=== PATIENT | female | born 1990 | race Caucasian/White ===

== ENCOUNTER 2017-09-23 07:45 | Inpatient (IN) | payer OTHER ==
[~2017-09-23] VITALS: Ht 154.9 cm; Wt 84.0 kg
[~2017-09-23 07:45] MED LIST: ALBU90I INH; CODGUAEL PO; Naprosyn500 MG PO; Sprintec1 EACH PO
[2017-09-23] MEDS ORDERED: UNISOM25 MG PO (08:45)
[2017-09-23] MEDS ORDERED: Verotin-Gr Cap1 EACH PO (08:45)
[2017-09-23 08:56] LABS: BASOPHILS ABSOLUTE AUTO 0.03 K/mm3 (0.00-0.23); BASOPHILS PERCENT AUTO 0 % (0-2); EOSINOPHILS ABSOLUTE AUTO 0.14 K/mm3 (0.00-0.68); EOSINOPHILS PERCENT AUTO 1 % (0-6); Hematocrit 34.5 % (33.0-51.0); Hemoglobin 10.9 g/dL (11.5-16.0); IMMATURE GRAN ABSOLUTE AUTO 0.04 K/mm3 (0.00-0.10); IMMATURE GRAN PERCENT AUTO 0 % (0-1); LYMPHOCYTES ABSOLUTE AUTO 1.53 K/mm3 (0.84-5.20); LYMPHOCYTES PERCENT AUTO 13 % (21-46); MONOCYTES ABSOLUTE AUTO 0.92 K/mm3 (0.16-1.47); MONOCYTES PERCENT AUTO 8 % (4-13); Mean Corpuscular HGB 27.3 pg (26.0-34.0); Mean Corpuscular HGB Conc 31.6 g/dL (31.5-36.5); Mean Corpuscular Volume 87 fL (80-100); Mean Platelet Volume 10.2 fL (9.1-12.4); NEUTROPHILS ABSOLUTE AUTO 8.77 K/mm3 (1.96-9.15); NEUTROPHILS PERCENT AUTO 77 % (41-73); Platelet Count 251 K/mm3 (150-400); RDW Coefficient Variation 13.5 % (11.7-14.2); RDW Standard Deviation 42.4 fL (35.1-46.3); Red Blood Cell Count 3.99 M/mm3 (3.80-5.20); White Blood Cell Count 11.43 K/mm3 (4.00-11.30)
[2017-09-23 11:04] LABS: PCO2 Cord - Arterial 52.3 mmHg (40-50); PO2 Cord - Arterial 14.4 mmHg (16-20); pH Cord - Arterial 7.28 (7.28-7.35)
[2017-09-23 11:07] LABS: PCO2 Cord - Venous 40.2 mmHg (40-50); PO2 Cord - Venous 23.5 mmHg (28-32); pH Umbilical Cord - Venous 7.36 (7.26-7.35)
[2017-09-23 11:14] LABS: PCO2 Cord - Arterial 56.3 mmHg (40-50); PO2 Cord - Arterial > 12 mmHg (16-20); pH Cord - Arterial 7.27 (7.28-7.35)
[2017-09-23 11:17] LABS: PO2 Cord - Venous 17.3 mmHg (28-32); pH Umbilical Cord - Venous 7.33 (7.26-7.35)
[2017-09-24 05:48] LABS: Hematocrit 31.3 % (33.0-51.0); Hemoglobin 10.1 g/dL (11.5-16.0); Mean Corpuscular HGB 27.9 pg (26.0-34.0); Mean Corpuscular HGB Conc 32.3 g/dL (31.5-36.5); Mean Corpuscular Volume 87 fL (80-100); Mean Platelet Volume 10.3 fL (9.1-12.4); Platelet Count 168 K/mm3 (150-400); RDW Coefficient Variation 13.7 % (11.7-14.2); RDW Standard Deviation 42.7 fL (35.1-46.3); Red Blood Cell Count 3.62 M/mm3 (3.80-5.20); White Blood Cell Count 12.58 K/mm3 (4.00-11.30)
[2017-09-25] MEDS ORDERED: IBUP800 PO (14:21)
[2017-09-25] MEDS ORDERED: Percocet 5-3251 EACH PO (14:22)
== END 2017-09-25 15:59 | disposition home or self-care (01) | DRG 765 ==
LOC: OBS 07:45 → BC 07:50 → OBS 08:15 → BC 08:16
PROVIDERS: Nurse Practitioner Obstetrics & Gynecology; Obstetrics & Gynecology
PROC: 10D00Z1 Extraction of Products of Conception, Low, Open Approach (ICD-10-PCS; principal; 2017-09-23 10:00)
DX: O32.1XX2 Maternal care for breech presentation, fetus 2 (principal); O30.003 Twin pregnancy, unspecified number of placenta and unspecified number of amniotic sacs, third trimester; Z37.2 Twins, both liveborn; Z3A.37 37 weeks gestation of pregnancy; Z88.8 Allergy status to other drugs, medicaments and biological substances; O99.52 Diseases of the respiratory system complicating childbirth; J45.909 Unspecified asthma, uncomplicated; Z87.891 Personal history of nicotine dependence
CPT/HCPCS: 36415; 82803; 85025; 85027; 88307; 90707; J0690; J1885; J2270; J2370; J2590; J2765; J3010; J7120

== ENCOUNTER 2025-04-02 17:45 | Emergency (ER) | payer SELFPAY ==
[~2025-04-02] VITALS: Ht 167.6 cm; Wt 61.7 kg
[~2025-04-02 17:45] MED LIST changes: +IBUP800 PO; +Percocet 5-3251 EACH PO; +UNISOM25 MG PO; +Verotin-Gr Cap1 EACH PO
[2025-04-02 17:52] VITALS: BP 136/99
[2025-04-02 18:21] LABS: BASOPHILS ABSOLUTE AUTO 0.06 K/mm3 (0.00-0.23); BASOPHILS PERCENT AUTO 1 % (0-2); EOSINOPHILS ABSOLUTE AUTO 0.21 K/mm3 (0.00-0.68); EOSINOPHILS PERCENT AUTO 3 % (0-6); Hematocrit 41.0 % (33.0-51.0); Hemoglobin 14.0 g/dL (11.5-16.0); IMMATURE GRAN ABSOLUTE AUTO 0.03 K/mm3 (0.00-0.10); IMMATURE GRAN PERCENT AUTO 0 % (0-1); LYMPHOCYTES ABSOLUTE AUTO 2.20 K/mm3 (0.84-5.20); LYMPHOCYTES PERCENT AUTO 32 % (21-46); MONOCYTES ABSOLUTE AUTO 0.60 K/mm3 (0.16-1.47); MONOCYTES PERCENT AUTO 9 % (4-13); Mean Corpuscular HGB Conc 34.1 g/dL (31.5-36.5); Mean Corpuscular Volume 91 fL (80-100); NEUTROPHILS ABSOLUTE AUTO 3.87 K/mm3 (1.96-9.15); NEUTROPHILS PERCENT AUTO 56 % (41-73); NRBC ABSOLUTE 0.00 K/mm3 (0.00-0.02); NRBC Auto 0.0 /100 WBC (0.0-0.2); Platelet Count 260 K/mm3 (150-400); RDW Coefficient Variation 11.9 % (11.7-14.2); RDW Standard Deviation 39.5 fL (35.1-46.3)
[2025-04-02 19:03] LABS: Beta HCG, Quantitative, Serum 1910 mIU/mL (0-3)
[2025-04-02 23:18] LABS: Source, Urine Clean Catch
[2025-04-02 23:26] LABS: Bilirubin, Urine Neg (Neg); Glucose Qualitative, Urine Neg (Neg); Ketones, Urine Neg (Neg); Leukocyte Esterase, Urine Neg (Neg); Protein, Urine 1+ (Neg); Specific Gravity, Urine 1.025 (1.003-1.022); Urobilinogen, Urine NORM (Normal)
[2025-04-02 23:30] LABS: Color, Urine Yellow (P-Yellow)
== END 2025-04-02 23:24 | disposition home or self-care (01) ==
LOC: ER 17:45
PROVIDERS: Student in an Organized Health Care Education/Training Program
DX: O99.891 Other specified diseases and conditions complicating pregnancy (principal); R10.31 Right lower quadrant pain; R11.0 Nausea; Z3A.01 Less than 8 weeks gestation of pregnancy; J45.909 Unspecified asthma, uncomplicated; Z87.891 Personal history of nicotine dependence
CPT/HCPCS: 76801; 76817; 83690; 84702; 85025; 99284-25